=== PATIENT | male | born 1955 | race Caucasian/White ===

== ENCOUNTER 2022-06-20 13:34 | Outpatient (RCR) | payer BC, SELFPAY ==
--- NOTE | 2022-06-21 14:36 | PTOPEVDC ---
Assessment and note entered by Kaia Snyder, PT Thank you for referring Hayden Ramirez to [facility].? An evaluation has been completed. No further treatment is needed. Evaluation Information Assessment Status Evaluation Diagnosis dizziness and giddiness Onset couple months ago Subjective Information Reports has been dizzy for a couple months now. In the middle of the night has to sit edge of the bed for a few minutes before gets up to go to the bathroom. Also has constant ringing in the ears, and popping in his ears R>L Pops very easily with normal activities like talking Reports practitioners state he has had bad allergies for a couple years, has very bad drainage that has medication for. Reports also thinks may have TMJ Assessment PT Clinical Summary Pt presents with dx of dizziness and giddiness. States he is dizzy upon first sitting up in bed and first with standing. Also reports tinnitus both ears and hearing rice krispies as well as sounds being extra loud at times. Pt demo's greatly decreased cervical range of motion but denies neck pain. Testing was unable to illicit vestibular signs or symptoms related to BPPV, or diagnosis pt presented for. Pt did have some relief with cervical distraction of some symptoms but not all. Pt was educated on findings, accessing therapy for cervical spine if he wishes, and possible ENT consult pending provider's input related to findings. Thus pt is not participating in therapy at this time as his symptoms appear unrelated to physical therapy capabilities to correct. Plan of Care PT Services Indicated No
== END 2022-06-26 11:19 | disposition home or self-care (01) ==
LOC: ANHHIPT 13:34
PROVIDERS: PCP Physician Assistant Medical; Visit Provider Physician Assistant Medical
DX: R42 Dizziness and giddiness (principal)
CPT/HCPCS: 97110; 97161